=== PATIENT | female | born 1930 | race Caucasian/White ===

== ENCOUNTER 2016-03-10 20:35 | Emergency (ER) | payer MEDICARE, OTHER ==
[2016-03-10 20:35] VITALS: BP 0/0
[2016-03-10] MEDS ORDERED: SODIUM BICARBONATE 8.4% INJ 50ML SYRINGE IV ONE (21:45)
[2016-03-10] MEDS ORDERED: EPINEPHrine HCL 1 MG/10 ML SYRG IV ONE (21:45)
== END 2016-03-10 23:49 | disposition expired ==
LOC: ER 20:38
DX: I46.9 Cardiac arrest, cause unspecified (principal)
CPT/HCPCS: 92950; 99285; J0171